=== PATIENT | female | born 1945 | race Caucasian/White ===

== ENCOUNTER 2016-09-29 11:24 | Emergency (ER) | payer MEDICARE, OTHER ==
[~2016-09-29] VITALS: Ht 157.5 cm; Wt 67.8 kg
[~2016-09-29 11:24] MED LIST: ASPI-664 PO; BACTDS PO; GLIM1TAB2 PO; LOSA50TA6 PO; METF500T4 PO; ROSU20TA PO
[2016-09-29 11:28] VITALS: Ht 157.5 cm; Wt 67.8 kg
--- NOTE | 2016-09-29 13:48 | RADRPT ---
PROCEDURE: XR Pelvis. CLINICAL INDICATION: Pelvic pain after fall TECHNIQUE: 2 frontal views of the pelvis COMPARISON: No prior studies are available for comparison. FINDINGS: There is normal mineralization and alignment of the bones of the pelvis. There is no evidence of ac christina fracture or dislocation. The femoral acetabular joints appear within normal limits. The sacroi liac joints are grossly unremarkable. The sacrum itself is suboptimally visualized due to overlying bowel gas. Small amounts of contrast is seen scattered throughout the left colon. There is suggest ed calcification overlying the midline pelvis likely related to calcified uterine fibroid . IMPRESSION: 1. No evidence of acute fracture or dislocation. RPTAT: KK .Everardo Mercedes MD, Date Time Electronically viewed and signed by .Everardo Mercedes MD, MD on 09/29/2016 13:48 .B/
--- NOTE | 2016-09-29 13:50 | RADRPT ---
PROCEDURE: XR Wrist. CLINICAL INDICATION: Right wrist pain after fall TECHNIQUE: 4 views of the right wrist were performed. COMPARISON: No prior studies are available for comparison. FINDINGS: There is normal mineralization and alignment of the bones of the right wrist . there is subtle offs et of the distal radius without definitive fracture line which may be related to prior fracture. Th ere is mild irregularity posteriorly as well.. Joint spaces are well maintained. No erosions or ost eophytes are seen. There is mild soft tissue swelling.. IMPRESSION: 1. Subtle changes of the distal right radius which may indicate a fracture, though this may represe nt a chronic fracture. Recommend correlation with point tenderness. If there is high clinical conc pedro pablo for fracture, consider CT scan for further evaluation. 2. Soft tissue swelling. RPTAT: KK .Everardo Mercedes MD, Date Time Electronically viewed and signed by .Everardo Mercedes MD, on 09/29/2016 13:49 .B/
[2016-09-29] MEDS ORDERED: NAPR-260 PO (14:01)
--- NOTE | 2016-09-29 14:23 | ERD ---
ER Documentation Chief Complaint Date/Time DATE: 09/29/16 TIME: 14:17 Chief Complaint right wrist pain after a fall HPI 71-year-old female presents status post trip and fall yesterday complaining of right wrist pain and right buttock pain. Patient states that she was at home, had accidentally fallen, she states that she try to catch herself and has been complaining of radial wrist pain since then. She also states she has a right buttock pain. She is achy pain, localized to the radius, no radiation of pain, worse in movement and better at rest. She also states she has a "hematoma" on her right buttock, she has no difficulty with ambulation. Denies saddle anesthesia loss of bowel bladder function. Patient denies any other injuries. ROS All systems reviewed and are negative except as per history of present illness. Medications Home Meds Active Scripts Naproxen* (Naprosyn*) 500 Mg Tablet, 500 MG PO BID Y for PAIN AND/OR INFLAMMATION, #30 TAB Prov:DALILA MICHAEL PA-C 09/29/16 Sulfamethoxazole-Trimethoprim* (Bactrim* DS) 800-160 Mg Tab, 1 TAB PO BID for 7 Days, TAB Prov:SARAH GALLO DO 11/22/14 Reported Medications Aspirin (Low Dose Aspirin) 81 Mg Tablet.dr, 81 MG PO QHS 11/22/14 Rosuvastatin Calcium* (Crestor*) 20 Mg Tablet, 20 MG PO HS, TAB 11/22/14 Losartan Potassium* (Losartan Potassium*) 50 Mg Tablet, 50 MG PO DAILY, TAB 11/22/14 Metformin Hcl* (Metformin Hcl*) 500 Mg Tablet, 500 MG PO TID, TAB 11/22/14 Glimepiride* (Glimepiride*) 1 Mg Tablet, 1 MG PO BID, TAB 11/22/14 Allergies Allergies: Coded Allergies: No Known Allergy (Unverified , 11/22/14) PMhx/Soc History of Surgery: Yes (Appy,Right Leg Vein Stripping) Anesthesia Reaction: No Hx Neurological Disorder: No Hx Respiratory Disorders: No Hx Cardiac Disorders: Yes (HTN,Dyslipidemia,A-Fib) Hx Psychiatric Problems: No Hx Miscellaneous Medical Probl: Yes (DM,Fall,Venous Stasis,Torn Rotator Cuff) Hx Alcohol Use: No Hx Substance Use: No Hx Tobacco Use: No Smoking Status: Never smoker Physical Exam Vitals Vital Signs Date Time Temp Pulse Resp B/P Pulse Ox O2 Delivery O2 Flow Rate FiO2 09/29/16 11:28 98.1 77 18 161/77 99 Physical Exam General: Well-developed, well-nourished. The patient appears in no acute distress. HEENT: Head is normocephalic, atraumatic. No scleral icterus. Pupils are equal , round, and reactive. Oral mucous membranes are moist. No pharyngeal erythema. Neck: Supple. Nontender. Lungs: Clear to auscultation. Normal air movement. Heart: Regular rate and rhythm. S1 and S2 are normal. No murmurs, gallops, or rubs. Abdomen: Soft, nontender, nondistended. Bowel sounds are normoactive. Extremities: No clubbing or cyanosis. Normal pulses. Moving extremities x 4. No weakness. Patient's gait is normal. Neurologic: Alert and oriented 3. No focal deficits. Skin: Normal turgor. No rash or lesions. Results 24 hrs PROCEDURE: XR Pelvis. CLINICAL INDICATION: Pelvic pain after fall TECHNIQUE: 2 frontal views of the pelvis COMPARISON: No prior studies are available for comparison. FINDINGS: There is normal mineralization and alignment of the bones of the pelvis. There is no evidence of acute fracture or dislocation. The femoral acetabular joints appear within normal limits. The sacroiliac joints are grossly unremarkable. The sacrum itself is suboptimally visualized due to overlying bowel gas. Small amounts of contrast is seen scattered throughout the left colon. There is suggested calcification overlying the midline pelvis likely related to calcified uterine fibroid . IMPRESSION: 1. No evidence of acute fracture or dislocation. RPTAT: KK .Everardo Mercedes MD, MD Date Time Electronically viewed and signed by .Everardo Mercedes MD, MD on 2016 13:48 .B/ CC: DALILA MICHAEL PA-C Patient: NAVI DAVIS : 1945 Age: 71 Sex: F MR #: [id number] DOS: 09/29/16 1227 Ordering MD: DALILA MICHAEL PA-C Location: [facility] Room/Bed: PROCEDURE: XR Wrist. CLINICAL INDICATION: Right wrist pain after fall TECHNIQUE: 4 views of the right wrist were performed. COMPARISON: No prior studies are available for comparison. FINDINGS: There is normal mineralization and alignment of the bones of the right wrist . there is subtle offset of the distal radius without definitive fracture line which may be related to prior fracture. There is mild irregularity posteriorly as well.. Joint spaces are well maintained. No erosions or osteophytes are seen. There is mild soft tissue swelling.. IMPRESSION: 1. Subtle changes of the distal right radius which may indicate a fracture, though this may represent a chronic fracture. Recommend correlation with point tenderness. If there is high clinical concern for fracture, consider CT scan for further evaluation. 2. Soft tissue swelling. RPTAT: KK .Everardo Mercedes MD, MD Date Time Electronically viewed and signed by .Everardo Mercedes MD MD on 2016 13:49 .B/ CC: DALILA MICHAEL PA-C Procedures/MDM ED course: Patient was offered pain medication, she states that she does not have much pain at this time and kindly declined. Patient's right wrist was placed in a sugar tong splint, as well as sling. Splint Assessment: Neurovascularly intact post splint placement with good fit. Medical decision makin-year-old female comes in with possible radial wrist fracture from a fall, patient was splinted for recheck with orthopedics in a week. She is distally neurovascularly intact. Patient states that she had fallen 2 days ago because she had tripped and fallen, this appears to be a mechanical fall. She does not show any signs of head injury, altered mental status, sepsis, dehydration or infectious origin. She also presents with hematoma on the right buttock, pelvis x-ray was also obtained and there is no evidence of any fracture. The case was reviewed and discussed with Dr. Remy who agrees with the plan of care including labs, treatment, and advanced imaging as appropriate. Patient's blood pressure was elevated (>120/80) but appears stable without evidence of hypertension emergency or urgency. The patient was counseled about the risks of hypertension and urged to pursue outpatient monitoring and therapy within a week with their primary care physician. 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 PLEASE FOLLOW UP WITH YOUR PRIMARY PHYSICIAN FOR REFFERAL.IF YOU DO NOT HAVE A PRIMARY CARE PHYSICIAN AND/OR YOU CAN NOT AFFORD TO SEE A PHYSICIAN THE FOLLOWING RESOURCES HAVE BEEN SUPPLIED TO YOU. IT IS YOUR RESPONSIBILITY TO BE SEEN BY THE SPECIALIST DALILA MICHAEL PA-C Sep 29, 2016 14:23
== END 2016-09-29 14:50 | disposition home or self-care (01) ==
LOC: FTE 11:24
DX: S52.501A Unspecified fracture of the lower end of right radius, initial encounter for closed fracture (principal); I10 Essential (primary) hypertension; E11.9 Type 2 diabetes mellitus without complications; W01.0XXA Fall on same level from slipping, tripping and stumbling without subsequent striking against object, initial encounter; Y92.9 Unspecified place or not applicable; Z79.82 Long term (current) use of aspirin; Z79.84 Long term (current) use of oral hypoglycemic drugs
CPT/HCPCS: 72170

== ENCOUNTER 2017-03-10 15:30 | Observation (INO) | payer MEDICARE, OTHER ==
[~2017-03-10] VITALS: Ht 162.6 cm; Wt 71.4 kg
[~2017-03-10 15:30] MED LIST changes: +NAPR-260 PO
[2017-03-10 17:38] LABS: ABNORMAL IP MESSAGE 1; BASOPHIL # 0.1 10^3/ul (0.0-0.1); BASOPHILS % 0.5 % (0.0-2.0); EOSINOPHILS # 0.1 10^3/ul (0.0-0.5); HEMATOCRIT 39.9 % (37.0-47.0); HEMOGLOBIN 13.7 g/dl (12.0-16.0); LYMPHOCYTES # 5.8 10^3/ul (0.8-2.9); LYMPHOCYTES % 43.6 % (15.0-51.0); MEAN CORPUSCULAR HEMOGLOBIN 29.2 pg (29.0-33.0); MEAN CORPUSCULAR HGB CONC 34.3 g/dl (32.0-37.0); MEAN CORPUSCULAR VOLUME 85.1 fl (82.0-101.0); MEAN PLATELET VOLUME 10.3 fl (7.4-10.4); MONOCYTE # 0.8 10^3/ul (0.3-0.9); MONOCYTES % 5.8 % (0.0-11.0); NEUTROPHIL # 6.5 10^3/ul (1.6-7.5); NEUTROPHILS % 48.7 % (39.0-77.0); PLATELET COUNT 263 10^3/UL (140-415); RED BLOOD COUNT 4.69 10^6/ul (4.20-5.40); RED CELL DISTRIBUTION WIDTH 12.5 % (11.5-14.5); WHITE BLOOD COUNT 13.3 10^3/ul (4.8-10.8)
[2017-03-10 17:42] LABS: POSITIVE DIFF @See below
[2017-03-10 17:59] LABS: INR 0.91; PARTIAL THROMBOPLASTIN TIME 24.5 Sec (25.0-35.0); PROTIME 12.2 Sec (12.2-14.2)
--- NOTE | 2017-03-10 18:01 | RADRPT ---
PROCEDURE: XR Chest 1 View. CLINICAL INDICATION: Shortness of breath. Stroke. TECHNIQUE: Single view of the chest was obtained. COMPARISON: None. FINDINGS: The cardiomediastinal silhouette is within normal limits. Elevated right hemidiaphragm is identified . Atelectasis is noted in the bilateral lower lungs. No consolidations are identified. No pneumotho rax is seen. Osseous structures are intact. IMPRESSION: Atelectasis in the bilateral lower lungs. Elevated right hemidiaphragm. RPTAT: AA .Peter Harrison MD, MD Date Time Electronically viewed and signed by .Peter Harrison MD, on 03/10/2017 18:00 .P/
--- NOTE | 2017-03-10 18:03 | RADRPT ---
PROCEDURE: CT Brain without contrast. CLINICAL INDICATION: Evaluate for stroke TECHNIQUE: A CT of the brain was performed on a [employer] 64-slice CT scanner utilizing axial imaging from the skull base through the vertex without IV contrast. Multiplanar reformatted images were made. Images were reviewed on a PACS workstation. The CTDIvol is 45 mGy and the DLP is 630.2 mGycm. One or more of the following dose reduction techniques were utilized: 1.) Automated exposure control 2.) Adjustment of the mA +/- kV according to patient's size 3.) Use of iterative reconstruction technique. COMPARISON: November 22, 2014 FINDINGS: There is no intracranial hemorrhage, mass effect, or midline shift. No extra-axial fluid collection is seen. Mild generalized cerebral volume loss. Periventricular white matter hypodensities are nons pecific but likely reflect chronic microvascular ischemic change. This finding has progressed since the prior examination. Gonzalez-white matter differentiation is preserved. Stable chronic left thalamic lacuna. The visualized paranasal sinuses and osseous structures are grossly unremarkable. IMPRESSION: 1. No evidence of acute intracranial pathology. No CT evidence for acute cortical infarct. MRI is m ore sensitive in this evaluation. 2. Increasing periventricular white matter hypodensities are nonspecific but likely reflect chronic microvascular ischemic changes. 3. Stable chronic left thalamic lacuna. Physician Rahel Date Time Electronically viewed and signed by Physician Rahel on 03/10/2017 18:02 ML/
[2017-03-10 18:05] LABS: ANION GAP 17 (8-16); BLOOD UREA NITROGEN 16 mg/dl (7-20); CALCIUM 10.3 mg/dl (8.4-10.2); CARBON DIOXIDE 25 mmol/L (21-31); CHLORIDE 104 mmol/L (97-110); CREATININE 0.72 mg/dl (0.44-1.00); GLUCOSE 103 mg/dl (70-220); POTASSIUM 3.8 mmol/L (3.5-5.1); SODIUM 142 mmol/L (135-144)
[2017-03-10 18:18] LABS: TROPONIN-I < 0.012 ng/ml (0.00-0.12)
[2017-03-10] MEDS ORDERED: ONDANSETRON 4 MG INJ IV PRN (19:00)
[2017-03-10] MEDS ORDERED: ACETAMINOPHEN 325 MG TAB PO PRN (19:00)
--- NOTE | 2017-03-10 19:28 | ERD ---
ER Documentation Chief Complaint Chief Complaint slurred speech, l. facial numbness and lue numbness at 1330, resolved now HPI This is a 71-year-old female with a past medical history of hypertension, hyperlipidemia, diabetes, paroxysmal atrial fibrillation who is presenting after an episode concerning for a TIA. The patient and her reports that approximately 1-2 hours prior to arrival, the patient had a acute onset 15- 20 minute episode of dysarthria/slurred speech, left-sided facial numbness with numbness and weakness to the left arm and leg in addition to difficulty with ambulation. The symptoms resolved on their own, and the patient is currently at baseline. However, she and her were concerned, and he wanted her to be evaluated in the hospital. She is not on any blood thinners The patient denies feeling sick recently. The patient denies fever or chills. The patient has had no headache or vision changes. The patient does not endorse neck or back pain. The patient denies lightheadedness or dizziness. The patient has had no chest pain or shortness of breath or trouble breathing. The patient denies nausea or vomiting. The patient denies abdominal pain or changes to bowel movements or urination. The patient only has had no focal deficits. The patient currently has had no weakness or numbness or tingling to the face or extremities. The patient has limited range of motion to the right shoulder secondary to a rotator cuff tear. This is chronic for her. ROS All systems reviewed and are negative except as per history of present illness. Medications Home Meds Active Scripts Naproxen* (Naprosyn*) 500 Mg Tablet, 500 MG PO BID Y for PAIN AND/OR INFLAMMATION, #30 TAB Prov:DALILA MICHAEL PA-C 09/29/16 Sulfamethoxazole-Trimethoprim* (Bactrim* DS) 800-160 Mg Tab, 1 TAB PO BID for 7 Days, TAB Prov:SARAH GALLO DO 11/22/14 Reported Medications Aspirin (Low Dose Aspirin) 81 Mg Tablet.dr, 81 MG PO QHS 11/22/14 Rosuvastatin Calcium* (Crestor*) 20 Mg Tablet, 20 MG PO HS, TAB 11/22/14 Losartan Potassium* (Losartan Potassium*) 50 Mg Tablet, 50 MG PO DAILY, TAB 11/22/14 Metformin Hcl* (Metformin Hcl*) 500 Mg Tablet, 500 MG PO TID, TAB 11/22/14 Glimepiride* (Glimepiride*) 1 Mg Tablet, 1 MG PO BID, TAB 11/22/14 Allergies Allergies: Coded Allergies: No Known Allergy (Unverified , 11/22/14) PMhx/Soc History of Surgery: Yes (Appy,Right Leg Vein Stripping) Anesthesia Reaction: No Hx Neurological Disorder: No Hx Respiratory Disorders: No Hx Cardiac Disorders: Yes (HTN,Dyslipidemia,A-Fib) Hx Psychiatric Problems: No Hx Miscellaneous Medical Probl: Yes (DM,Fall,Venous Stasis,Torn Rotator Cuff) Hx Alcohol Use: No Hx Substance Use: No Hx Tobacco Use: No Smoking Status: Never smoker FmHx Family History: diabetes Physical Exam Vitals Vital Signs Date Time Temp Pulse Resp B/P Pulse Ox O2 Delivery O2 Flow Rate FiO2 03/10/17 18:12 71 20 157/93 98 Room Air 03/10/17 17:16 Nasal Cannula 2 03/10/17 15:33 97.7 84 20 164/62 99 Physical Exam Const: No apparent distress, well-developed, well-nourished Head: Normocephalic, Atraumatic Eyes: Normal Conjunctiva. Extraocular movements intact. Pupils equal, round and reactive to light ENT: Normal External Ears, Nose and Mouth. Neck: Full range of motion. No meningismus. Resp: Clear to auscultation bilaterally, No wheezes, rales or rhonchi Cardio: Regular rate and rhythm. No murmurs, rubs or gallops Abd: Soft, non tender, non distended. Normal bowel sounds Skin: No petechiae or rashes Back: No midline tenderness. No CVA tenderness Ext: No cyanosis, or edema. Limited range of motion to the right shoulder secondary to previous rotator cuff injury. Neur: Awake and alert, oriented 4. Cranial nerves intact. No facial droop. 5 out of 5 strength in all extremities. Normal sensation in all extremities. No neglect. No drift. Normal finger to nose with the left upper extremity. Difficulty complying with finger-nose testing with the right extremity secondary to shoulder pain. Psych: Normal Mood and Affect Result Diagram: 03/10/17 1731 03/10/17 1731 Results 24 hrs Laboratory Tests Test 03/10/17 17:31 03/10/17 18:09 White Blood Count 13.310^3/ul Red Blood Count 4.6910^6/ul Hemoglobin 13.7g/dl Hematocrit 39.9% Mean Corpuscular Volume 85.1fl Mean Corpuscular Hemoglobin 29.2pg Mean Corpuscular Hemoglobin Concent 34.3g/dl Red Cell Distribution Width 12.5% Platelet Count 53451^3/UL Mean Platelet Volume 10.3fl Neutrophils % 48.7% Lymphocytes % 43.6% Monocytes % 5.8% Eosinophils % 1.0% Basophils % 0.5% Nucleated Red Blood Cells % 0.0/100WBC Neutrophils # 6.510^3/ul Lymphocytes # 5.810^3/ul Monocytes # 0.810^3/ul Eosinophils # 0.110^3/ul Basophils # 0.110^3/ul Nucleated Red Blood Cells # 0.010^3/ul Prothrombin Time 12.2Sec Prothrombin Time Ratio 1.0 INR International Normalized Ratio 0.91 Activated Partial Thromboplast Time 24.5Sec Sodium Level 142mmol/L Potassium Level 3.8mmol/L Chloride Level 104mmol/L Carbon Dioxide Level 25mmol/L Anion Gap 17 Blood Urea Nitrogen 16mg/dl Creatinine 0.72mg/dl Glucose Level 103mg/dl Hemoglobin A1c 8.0% Calcium Level 10.3mg/dl Troponin I < 0.012ng/ml Bedside Glucose 92mg/dL Current Medications Medications (Trade) Dose Ordered Sig/Abhijeet Route PRN Reason Start Time Stop Time Status Last Admin Dose Admin Ondansetron HCl (Zofran Inj) 4 mg ER BRIDGE PRN IV NAUSEA AND/OR VOMITING 03/10/17 19:00 03/11/17 18:59 Acetaminophen (Tylenol Tab) 650 mg ER BRIDGE PRN PO MILD PAIN/FEVER 03/10/17 19:00 03/11/17 18:59 Aspirin (Aspirin) 324 mg ONCE ONCE PO 03/10/17 19:30 03/10/17 19:31 Procedures/MDM MDM The patient's presentation warrants further investigation. The patient appears to be in a normal sinus rhythm at this time, but she does have a history of paroxysmal atrial fibrillation, which is concerning. The patient's symptoms are concerning for a TIA. A stroke workup will be completed. LABS The patient's blood work was obtained and reviewed. The patient's CBC shows mild leukocytosis and no left shift. The patient is afebrile and does not appear systemically ill. I do not suspect a systemic infection. Her leukocytosis is likely reactive. The patient is not anemic today. The patient' s platelet count is unremarkable. The patient's BMP shows no signs of metabolic or electrolyte emergencies. The patient has unremarkable renal function testing. Patient's coags are unremarkable. Troponin is negative. EKG EKG read by me: Rate/Rhythm: Regular rate and rhythm at a rate of 66 bpm Intervals: Normal DE and QTc. Prolonged QRS duration with a right bundle branch block. [place]: Normal Impression: Nonspecific repolarization abnormalities but no ST or T-wave changes concerning for acute ischemia at this time. IMAGING CT Head IMPRESSION: 1. No evidence of acute intracranial pathology. No CT evidence for acute cortical infarct. MRI is more sensitive in this evaluation. 2. Increasing periventricular white matter hypodensities are nonspecific but likely reflect chronic microvascular ischemic changes. 3. Stable chronic left thalamic lacuna. Electronically viewed and signed by Physician Rahel on 03/10/2017 18 :02 CXR The cardiomediastinal silhouette is within normal limits. Elevated right hemidiaphragm is identified. Atelectasis is noted in the bilateral lower lungs. No consolidations are identified. No pneumothorax is seen. Osseous structures are intact. Atelectasis in the bilateral lower lungs. Elevated right hemidiaphragm. Electronically viewed and signed by .Peter Harrison MD, MD on 03/10/2017 18:00 TREATMENT/DISPOSITION Patient's physical exam at this time is reassuring. However, there is concern of a TIA given the patient's symptoms earlier today. The patient CT head does not show any evidence of acute ischemia or intracranial hemorrhage. The patient will be given a full dose aspirin in the emergency department. The patient's chads-vasc score is 6 for history of hypertension, diabetes, reported history of stroke, gender and age. At this time, I feel that the patient requires admission for further evaluation and management. The patient will be admitted to panel in accordance with the patient's insurance. The patient was accepted by Dr. Perez at 18:47 on March 10, 2017. The patient's blood pressure was elevated at greater than 120/80 while in the emergency department. The patient was otherwise stable with no evidence of hypertensive urgency or emergency or end organ damage. The patient does not require admission for blood pressure control. I have discussed with the patient the risks of hypertension. I have advised the patient to follow up with the primary care physician for outpatient monitoring and treatment for hypertension in 2-3 days. I have instructed the patient to return to the ER for any new or worsening symptoms including chest pain, shortness of breath, headache, blurred vision, confusion, nausea, vomiting or LOC. Disclaimer: Inadvertent spelling and grammatical errors are likely due to EHR/ dictation software use and do not reflect on the overall quality of patient care. Note that the electronic time recorded on this note does not necessarily reflect the actual time of the patient encounter. Departure Diagnosis: Primary Impression: TIA (transient ischemic attack) Transient cerebral ischemia type: unspecified Qualified Code: G45.9 - Transient cerebral ischemia, unspecified type Additional Impression: History of atrial fibrillation Condition: Serious OLENA HENRIQUEZ MD Mar 10, 2017 19:28
[2017-03-10] MEDS ORDERED: ASPIRIN 81 MG TAB PO ONE (19:30)
[2017-03-10 20:00] VITALS: BP 192/91; RESP 17
[2017-03-10 20:21] VITALS: PULSE 60
[2017-03-10] MEDS ORDERED: ESOM40CA51 PO (20:45)
[2017-03-10] MEDS ORDERED: SITA100T8 PO (20:45)
[2017-03-10 21:15] VITALS: Ht 162.6 cm; Wt 71.4 kg
[2017-03-10 22:23] VITALS: BP 164/70; PULSE 57
[2017-03-10] MEDS ORDERED: GLUCOSE GEL 15 GRAM TUBE PO PRN ×2 (23:30)
[2017-03-10] MEDS ORDERED: GLUCAGON 1 MG INJ IM PRN (23:30)
[2017-03-10] MEDS ORDERED: DEXTROSE 50% 50 ML SYRINGE IV PRN ×2 (23:30)
[2017-03-10] MEDS ORDERED: GLUCOSE GEL 15 GRAM TUBE BUCCAL PRN (23:30)
[2017-03-11] VITALS (12 sets, daily range): BP systolic 102–151; BP diastolic 54–70; PULSE 52–71; RESP 17–20
[2017-03-11] MEDS ORDERED: SITA100T8 PO (01:29)
[2017-03-11] MEDS: ACCU-CHEK XX SCH (01:55)
[2017-03-11] MEDS ORDERED: NACL 0.9% 3 ML SYG IV SCH (07:00)
[2017-03-11] MEDS ORDERED: morphine 2 MG INJ IV PRN (07:00)
[2017-03-11] MEDS ORDERED: ALBUTEROL/IPRATROPIUM (NEB) 3 ML AMP HHN PRN (07:00)
[2017-03-11] MEDS ORDERED: ONDANSETRON 4 MG INJ IV PRN (07:00)
[2017-03-11] MEDS ORDERED: ACETAMINOPHEN 325 MG TAB PO PRN (07:00)
[2017-03-11] MEDS: INSULIN ASPART [NOVOLOG] 3 ML PEN SC SCH ×4 (07:55→20:22)
[2017-03-11 08:42] LABS: ABNORMAL IP MESSAGE 1; BASOPHIL # 0.1 10^3/ul (0.0-0.1); BASOPHILS % 0.4 % (0.0-2.0); EOSINOPHILS # 0.1 10^3/ul (0.0-0.5); EOSINOPHILS % 1.1 % (0.0-7.0); HEMATOCRIT 36.4 % (37.0-47.0); HEMOGLOBIN 12.7 g/dl (12.0-16.0); LYMPHOCYTES # 5.6 10^3/ul (0.8-2.9); LYMPHOCYTES % 47.9 % (15.0-51.0); MEAN CORPUSCULAR HEMOGLOBIN 29.5 pg (29.0-33.0); MEAN CORPUSCULAR HGB CONC 34.9 g/dl (32.0-37.0); MEAN CORPUSCULAR VOLUME 84.7 fl (82.0-101.0); MEAN PLATELET VOLUME 10.3 fl (7.4-10.4); MONOCYTE # 0.8 10^3/ul (0.3-0.9); MONOCYTES % 6.4 % (0.0-11.0); NEUTROPHIL # 5.1 10^3/ul (1.6-7.5); PLATELET COUNT 226 10^3/UL (140-415); RED CELL DISTRIBUTION WIDTH 12.8 % (11.5-14.5); WHITE BLOOD COUNT 11.7 10^3/ul (4.8-10.8)
[2017-03-11] MEDS ORDERED: FAMOTIDINE 20 MG TAB PO SCH (09:00)
[2017-03-11 09:06] LABS: POSITIVE DIFF @See below
[2017-03-11] MEDS: LINAGLIPTIN 5 MG TABLET PO SCH (09:10)
[2017-03-11 09:23] LABS: ALBUMIN 3.7 g/dl (3.3-4.9); ALBUMIN/GLOBULIN RATIO 1.37; BILIRUBIN,INDIRECT 0.4 mg/dl (0-1.1); BILIRUBIN,TOTAL 0.4 mg/dl (0.2-1.3); CALCIUM 9.5 mg/dl (8.4-10.2); CHOL/HDL RATIO 1.9 RATIO; CREATININE 0.68 mg/dl (0.44-1.00); MAGNESIUM 1.7 mg/dl (1.7-2.5); POTASSIUM 3.6 mmol/L (3.5-5.1); TOTAL PROTEIN 6.4 g/dl (6.1-8.1)
[2017-03-11] MEDS: ENOXAPARIN 40 MG/0.4 ML SYG SC SCH (10:41)
[2017-03-11] MEDS: metFORMIN 500 MG TAB PO SCH ×2 (12:48→17:48)
--- NOTE | 2017-03-11 12:53 | RADRPT ---
PROCEDURE: US carotid arteries. CLINICAL INDICATION: Dizziness. Transient ischemic attack. TECHNIQUE: Multiple sonographic images of the carotid arteries and vertebral arteries were obtaine d utilizing giordano scale, duplex, and color-flow imaging. The images were reviewed on a PACS workstati on. COMPARISON: No prior studies are available for comparison. FINDINGS: Evaluation of the right carotid bifurcation region reveals mild atherosclerotic disease. Evaluation of the left carotid bifurcation region reveals mild atherosclerotic disease. There is antegrade flow within the vertebral arteries bilaterally. RIGHT CAROTID MEASUREMENTS: Common Carotid [id number] (cm/sec) Internal Carotid Artery 77 (cm/sec) External Carotid Artery 68 (cm/sec) Vertebral Artery 39 (cm/sec) Internal Carotid/Common Carotid1.1 LEFT CAROTID MEASUREMENTS: Common Carotid [id number] (cm/sec) Internal Carotid Artery 71 (cm/sec) External Carotid Artery 64 (cm/sec) Vertebral Artery 40 (cm/sec) Internal Carotid/Common Carotid1.2 Validated velocity measurements with angiographic measurements. Velocity criteria are extrapolated f rom diameter data as defined by the Society of Radiologists in Ultrasound Consensus Conference. Radi ology 2003; 229;340-346. This study does indirectly reference the measurement of the distal ICA brittany meter as the denominator for stenosis measurement. IMPRESSION: 1. Less than 50% stenosis bilaterally in the internal carotid arteries. 2. Normal antegrade flow in the vertebral arteries bilaterally. RPTAT: QQ .Lars Kumar MD, MD Date Time Electronically viewed and signed by .Lars Kumar MD, on 03/11/2017 12:53 .R/
--- NOTE | 2017-03-11 18:00 | RADRPT ---
Echocardiogram Report Patient Name: NAVI DAVIS Gender: Female Date: 1945 Study Date: 11-Mar-2017 Mimeographer: Michael Mayer [facility] Location: [id number] Ref. Physician: STEVE ROACH Quality: Adequate Procedures: Transthoracic echocardiogram with complete 2D, M-Mode, and doppler examination. Indications: Transient Ischemic Attack. 2D/M Mode Doppler Measurement Value Normal Ranges Measurement Value Normal Ranges LVIDd 2D 4.2 3.5 - 5.6 cm AV Peak Draius 1.6 m/sec LVIDs 2D 2.5 2.1 - 4.1 cm AV Peak PG 9.7 mmHg LVPWd 2D 0.8 0.6 - 1.1 cm LVOT Peak Darius 1.1 m/sec IVSd 2D 0.9 0.6 - 1.1 cm LVOT Peak PG 5.2 mmHg AoR Diam 2D 3.0 2.0 - 3.7 cm MV E Peak Darius 0.7 m/sec EDV 2D 78.5 cm3 MV A Peak Darius 0.8 m/sec ESV 2D 15.9 cm3 MV E/A 0.8 LA Dimen 2D 3.3 2.3 - 4.0 cm MV Decel Time 233 msec MV Decel [place] 3 MV E/A 0.8 Findings Left Ventricle: Normal left ventricular systolic function. Normal left ventricular cavity size. Normal left ventricular wall thickness. Ejection fraction is visually estimated at 5560 %. Tissue Doppler/Mitral Doppler indices are consistent with impaired relaxation (Stage I diastolic dysfunction). Right Ventricle: Normal right ventricular size. Normal right ventricular systolic function. Left Atrium: The left atrium is normal in size. Right Atrium: The right atrium is normal in size. Mitral Valve: Normal appearance of the mitral valve. Mild mitral annular calcification. Trace mitral regurgitation. Aortic Valve: Normal appearance of the aortic valve. No significant aortic stenosis or insufficiency. Tricuspid Valve: Normal appearance of the tricuspid valve. Unable to obtain RVSP due to minimal presence of tricuspid regurgitation. Pulmonic Valve: Normal pulmonic valve appearance. Pericardium: Normal pericardium with no significant pericardial effusion. Aorta: Normal aortic root. IVC: Normal size and normal respiratory collapse consistent with normal right atrial pressure. Conclusions 1.Normal left ventricular systolic function. Normal left ventricular cavity size. Normal left ventricular wall thickness. Ejection fraction is visually estimated at 55-60 %. Tissue Doppler/Mitral Doppler indices are consistent with impaired relaxation (Stage I diastolic dysfunction). 2.Normal appearance of the mitral valve. Mild mitral annular calcification. Trace mitral regurgitation. 3.Normal appearance of the tricuspid valve. Unable to obtain RVSP due to minimal presence of tricuspid regurgitation. Electronically Signed By: Conor Leyva 11-Mar-2017 18:00:05 -0800 Patient Name: NAVI DAVIS Study Date: 11-Mar-2017 [id number]
[2017-03-11] MEDS ORDERED: ASPIRIN (EC) 81 MG TAB PO SCH (21:00)
[2017-03-11] MEDS ORDERED: RANITIDINE 150 MG TAB PO SCH (21:00)
[2017-03-11] MEDS ORDERED: ATORVASTATIN 80 MG TAB PO SCH (21:00)
--- NOTE | 2017-03-11 23:52 | HP ---
Date/Time of Note Date/Time of Note DATE: 03/11/17 TIME: 23:51 Assessment/Plan VTE Prophylaxis VTE Prophylaxis Intervention: heparin Lines/Catheters IV Catheter Type (from [facility]): [place] Urinary Cath still in place: No Assessment/Plan Assessment/Plan 1. Left UE numbness: resolved -CT head neg -check carotids, MRI brain, 2D-echo -ASA, statin, sunq hep for DVT ppx -PT eval 2. HTN -cont home meeds 3. Type II DM check A1c insulin while in-house 4. DL cont statin HPI/ROS Admit Date/Time Admit Date/Time Mar 10, 2017 at 18:50 Hx of Present Illness This is a 71 yo female with hx of HTN, type II DM, DL who presented to ER c/o left UE numbness x few hours. Symptoms has already resolved in ER. Denied associated focal weakness, slurred speech, headache, visual disturbances, CP. In ED, initial BP 164/62, head CT was neg for acute findings. PMH/Family/Social Social History Smoking Status: Never smoker Exam/Review of Systems Vital Signs Vitals Vital Signs Date Time Temp Pulse Resp B/P Pulse Ox O2 Delivery O2 Flow Rate FiO2 03/11/17 20:45 98.4 68 20 137/70 97 03/10/17 18:12 Room Air 03/10/17 17:16 2 Intake and Output 03/10/17 03/10/17 03/11/17 14:59 22:59 06:59 Intake Total 200 ml Balance 200 ml Exam Constitutional: alert, oriented Psych: nl mood/affect, no complaints Eyes: PERRL Respiratory: clear to auscultation, normal air movement Cardiovascular: regular rate and rhythm Gastrointestinal: non-tender, soft Extremities: normal pulses Labs Result Diagram: 03/11/17 0800 03/11/17 0800 Medications Medications Current Medications Diagnostic Test (Pha) (Accu-Chek) 1 ea 02 XX ; Start 03/11/17 at 02:00 Miscellaneous Information 1 ea NOTE XX ; Start 03/10/17 at 23:30 Glucose (Glutose) 15 gm Q15M PRN PO DECREASED GLUCOSE; Start 03/10/17 at 23:30 Glucose (Glutose) 22.5 gm Q15M PRN PO DECREASED GLUCOSE; Start 03/10/17 at 23: 30 Dextrose (D50w Syringe) 25 ml Q15M PRN IV DECREASED GLUCOSE; Start 03/10/17 at 23:30 Dextrose (D50w Syringe) 50 ml Q15M PRN IV DECREASED GLUCOSE; Start 03/10/17 at 23:30 Glucagon (Glucagen) 1 mg Q15M PRN IM DECREASED GLUCOSE; Start 03/10/17 at 23: 30 Glucose (Glutose) 15 gm Q15M PRN BUCCAL DECREASED GLUCOSE; Start 03/10/17 at 23:30 Ranitidine HCl (Zantac) 150 mg HS PO Last administered on 03/11/17 20:19; Admin Dose 150 MG; Start 03/11/17 at 21:00 Aspirin (Halfprin) 81 mg QHS PO Last administered on 03/11/17 20:20; Admin Dose 81 MG; Start 03/11/17 at 21:00 Atorvastatin Calcium (Lipitor) 80 mg DAILY@21 PO Last administered on 20:20; Admin Dose 80 MG; Start 03/11/17 at 21:00 Linagliptin (Tradjenta) 5 mg QAM PO ; Start 03/11/17 at 09:10 Ondansetron HCl (Zofran Inj) 4 mg Q6H PRN IV NAUSEA AND/OR VOMITING; Start at 07:00 Acetaminophen (Tylenol Tab) 650 mg Q6H PRN PO PAIN LEVEL 1-3 OR FEVER; Start 03/11/17 at 07:00 Morphine Sulfate (morphine) 2 mg Q4H PRN IV PAIN LEVEL 7-10; Start 03/11/17 at 07:00 Enoxaparin Sodium (Lovenox) 40 mg DAILY SC Last administered on 03/11/17 10: 41; Admin Dose 40 MG; Start 03/11/17 at 09:00 STEVE ROACH MD Mar 11, 2017 23:51
[2017-03-12] VITALS (8 sets, daily range): BP systolic 126–144; BP diastolic 71–72; PULSE 51–64; RESP 20–21
[2017-03-12] MEDS: ACCU-CHEK XX SCH (02:00)
[2017-03-12 07:42] LABS: ABNORMAL IP MESSAGE 1; BASOPHIL # 0.1 10^3/ul (0.0-0.1); BASOPHILS % 0.5 % (0.0-2.0); EOSINOPHILS # 0.1 10^3/ul (0.0-0.5); EOSINOPHILS % 1.3 % (0.0-7.0); HEMOGLOBIN 13.4 g/dl (12.0-16.0); LYMPHOCYTES # 5.5 10^3/ul (0.8-2.9); MEAN CORPUSCULAR HEMOGLOBIN 29.2 pg (29.0-33.0); MEAN CORPUSCULAR HGB CONC 34.4 g/dl (32.0-37.0); MEAN PLATELET VOLUME 10.5 fl (7.4-10.4); MONOCYTE # 0.7 10^3/ul (0.3-0.9); MONOCYTES % 6.9 % (0.0-11.0); NEUTROPHIL # 4.1 10^3/ul (1.6-7.5); NEUTROPHILS % 39.1 % (39.0-77.0); PLATELET COUNT 251 10^3/UL (140-415); RED BLOOD COUNT 4.59 10^6/ul (4.20-5.40); RED CELL DISTRIBUTION WIDTH 12.9 % (11.5-14.5); WHITE BLOOD COUNT 10.5 10^3/ul (4.8-10.8)
[2017-03-12 07:51] LABS: POSITIVE DIFF @See below
[2017-03-12] MEDS: INSULIN ASPART [NOVOLOG] 3 ML PEN SC SCH ×2 (07:55→11:50)
[2017-03-12 08:04] LABS: CALCIUM 9.7 mg/dl (8.4-10.2); CREATININE 0.75 mg/dl (0.44-1.00); MAGNESIUM 1.8 mg/dl (1.7-2.5); PHOSPHORUS 4.3 mg/dl (2.5-4.9); POTASSIUM 3.9 mmol/L (3.5-5.1)
[2017-03-12] MEDS: LINAGLIPTIN 5 MG TABLET PO SCH (08:59)
[2017-03-12] MEDS: metFORMIN 500 MG TAB PO SCH ×2 (08:59→11:50)
[2017-03-12] MEDS: ENOXAPARIN 40 MG/0.4 ML SYG SC SCH (09:04)
--- NOTE | 2017-03-12 09:59 | PDOCDIS ---
Discharge Instructions CONDITION Patient Condition: Good HOME CARE INSTRUCTIONS: Special Diet: DIABETIC DIET ACTIVITY: Activity Restrictions: No Restrictions FOLLOW UP/APPOINTMENTS Follow-up Plan F/U WITH YOUR PHYSICIANS SCHEDULED EMILIO RIVERO Mar 12, 2017 09:59
--- NOTE | 2017-03-12 11:58 | DS ---
Date/Time of Note Date/Time of Note DATE: 03/12/17 TIME: 11:54 Discharge Summary Admission/Discharge Info Admit Date/Time Mar 10, 2017 at 18:50 Discharge Date/Time March 12, 2017 Discharge Diagnosis 1. Left UE numbness secondary to TIA: resolved -CT head neg -Carotids and 2D echo within normal limits -Continue home aspirin and statin 2. HTN -cont home meeds 3. Type II DM A1c at 7.9 Continue home meds and follow-up with endocrinology as scheduled 4. DL cont statin Patient Condition: Good Hospital Course Patient is a 71 yo female with hx of HTN, type II DM, DL who presented to ER c/ o left UE numbness and slurred speech x few hours. Symptoms resolved in ER. CT head was negative as well as echo and carotid ultrasound. Patient was monitored on telemetry overnight and had no further episodes of weakness. Patient does have follow-up with an building operator and a PCP. On day of discharge patient's vitals, labs and physical exam are stable she had no acute complaints questions were answered. Home Meds Active Scripts Naproxen* (Naprosyn*) 500 Mg Tablet, 500 MG PO BID Y for PAIN AND/OR INFLAMMATION, #30 TAB Prov:DALILA MICHAEL PA-C 09/29/16 Sulfamethoxazole-Trimethoprim* (Bactrim* DS) 800-160 Mg Tab, 1 TAB PO BID for 7 Days, TAB Prov:SARAH GALLO DO 11/22/14 Reported Medications Sitagliptin* (Januvia*) 100 Mg Tablet, 100 MG PO DAILY, #30 TAB 03/11/17 Sitagliptin* (Januvia*) 100 Mg Tablet, 100 MG PO QAM, #30 TAB 03/10/17 Esomeprazole Magnesium (Esomeprazole Magnesium) 40 Mg Capsule.dr, 40 MG PO QHS, #30 CAP 03/10/17 Aspirin (Low Dose Aspirin) 81 Mg Tablet.dr, 81 MG PO QHS 11/22/14 Rosuvastatin Calcium* (Crestor*) 20 Mg Tablet, 20 MG PO HS, TAB 11/22/14 Losartan Potassium* (Losartan Potassium*) 50 Mg Tablet, 50 MG PO DAILY, TAB 11/22/14 Metformin Hcl* (Metformin Hcl*) 500 Mg Tablet, 500 MG PO TID, TAB 11/22/14 Glimepiride* (Glimepiride*) 1 Mg Tablet, 1 MG PO BID, TAB 11/22/14 Follow-up Plan F/U WITH YOUR PHYSICIANS SCHEDULED Primary Care Provider Not On Staff Doctor Time spent on discharge: > 30 minutes EMILIO RIVERO Mar 12, 2017 11:58
== END 2017-03-12 14:10 | disposition home or self-care (01) ==
LOC: E/R 15:30 → TEL 18:50
PROVIDERS: ADMIT Internal Medicine; ATTEND Internal Medicine
DX: G45.9 Transient cerebral ischemic attack, unspecified (principal); I10 Essential (primary) hypertension; E78.5 Hyperlipidemia, unspecified; I48.0 Paroxysmal atrial fibrillation; Z79.82 Long term (current) use of aspirin; Z79.84 Long term (current) use of oral hypoglycemic drugs; Z83.3 Family history of diabetes mellitus
CPT/HCPCS: 36415; 70450; 71010; 80048; 80053; 80061; 82962; 83036; 83735; 84100; 84484; 85025; 85610; 85730; 92610; 93005; 93306; 93880; 97163; 99285; G0378; G8996; G8997; G8998; J1650; J1815